=== PATIENT | female | born 1980 | race African-American/Black ===

== ENCOUNTER 2017-07-11 22:00 | Emergency (ER) | payer MEDICAID, OTHER ==
[~2017-07-11] VITALS: Ht 157.5 cm; Wt 58.1 kg
[2017-07-11 22:50] VITALS: BP 130/89
[2017-07-11] MEDS ORDERED: Ketorolac 30mg Inj IV ONE (23:15)
[2017-07-11 23:57] LABS: BASOPHILS % (AUTO) 0.3 % (0.0-2.0); EOSINOPHILS % (AUTO) 4.2 % (0.0-3.0); HEMATOCRIT 41.6 % (37.0-47.0); LYMPHOCYTES % (AUTO) 9.7 % (20.0-45.0); MEAN CORPUSCULAR VOLUME 92 FL (80-99); MONOCYTES % (AUTO) 5.4 % (1.0-10.0); NEUTROPHILS % (AUTO) 80.3 % (45.0-75.0); PLATELET COUNT 186 K/UL (150-450); RED CELL DISTRIBUTION WIDTH 16.3 % (11.6-14.8); WHITE BLOOD COUNT 4.9 K/UL (4.8-10.8)
[2017-07-12 00:04] LABS: ANION GAP 9 mmol/L (5-15); BLOOD UREA NITROGEN 7 mg/dL (7-18); CALCIUM 8.8 MG/DL (8.5-10.1); CARBON DIOXIDE 26 MMOL/L (21-32); CHLORIDE 101 MMOL/L (98-107); POTASSIUM 3.7 MMOL/L (3.5-5.1); SODIUM 135 MMOL/L (136-145)
[2017-07-12 00:05] LABS: APPEARANCE,URINE CLEAR; BILIRUBIN, URINE NEGATIVE (NEGATIVE); COLOR,URINE PALE YELLOW; GLUCOSE, URINE (UA) NEGATIVE (NEGATIVE); KETONES,URINE NEGATIVE (NEGATIVE); LEUKOCYTE ESTERASE ,URINE NEGATIVE (NEGATIVE); NITRITE,URINE NEGATIVE (NEGATIVE); PH,URINE 6.5 (4.5-8.0); PROTEIN,URINE NEGATIVE (NEGATIVE); UROBILINOGEN,URINE NORMAL MG/DL (0.0-1.0)
--- NOTE | 2017-07-12 00:15 | Emergency Room Report ---
History of Present Illness General Chief Complaint: General Complaint Source: Patient Present Illness [facility] This is a 36-year-old female with a history of anemia secondary to multiple fibroids. Patient presents with chief complaint of generalized weakness and fever. Also body pain from hypertension. Onset today. She thinks that is the cause of the antibiotic she is taking for "fibroid." The antibiotic was Flagyl. She also developed a prickly rash to her body. Slightly itching. Does have mild cough and congestion. Also feeling nauseous but no vomiting. Also with back pain. Pain is 9 out of 10. Allergies: Coded Allergies: ASPIRIN (Verified Allergy, Unknown, 07/11/17) IBUPROFEN (Verified Allergy, Unknown, 07/11/17) Patient History Past Medical History: see triage record, old chart reviewed Past Surgical History: other Pertinent Family History: other Social History: Denies: smoking Last Menstrual Period: june 25 "something" Now: No Immunizations: other Reviewed Nursing Documentation: PMH: Agreed, PSxH: Agreed Review of Systems Constitutional: Reports: chills, fever, malaise, weakness Eye: Denies: eye pain, blurred vision ENT: Denies: ear pain, nose congestion, throat swelling Respiratory: Reports: cough, Denies: shortness of breath Cardiovascular: Denies: chest pain, palpitations Gastrointestinal: Denies: abdominal pain, diarrhea, nausea, vomiting Musculoskeletal: Denies: back pain, joint pain Skin: Reports: rash Neurological: Denies: headache, numbness Endocrine: Denies: increased thirst, increased urine Hematologic/Lymphatic: Denies: easy bruising All Other Systems: negative except mentioned in HPI Physical Exam Vital Signs Date Time Temp Pulse Resp B/P (MAP) Pulse Ox O2 Delivery O2 Flow Rate FiO2 07/11/17 22:37 102.3 111 18 133/90 98 Room Air 102.4 vitals with fever Sp02 EP Interpretation: reviewed, normal General Appearance: well appearing, no apparent distress, alert Head: normocephalic, atraumatic Eyes: bilateral eye PERRL, bilateral eye EOMI ENT: hearing grossly normal, normal pharynx Neck: full range of motion, supple, no meningismus Respiratory: chest non-tender, lungs clear, normal breath sounds Cardiovascular #1: regular rate, rhythm, no murmur Gastrointestinal: normal bowel sounds, non tender, no mass, no organomegaly, no bruit, non-distended Musculoskeletal: back normal, gait/station normal, normal range of motion Neurologic: alert, oriented x3 Psychiatric: mood/affect normal Skin: warm/dry Medical Decision Making Diagnostic Impression: Primary Impression: Influenza-like illness ER Course Patient with influenza-like illness. No evidence of sepsis, pneumonia, dissection. Because of her itchiness and medical head and put her on Benadryl. I doubt this is an allergic reaction. she has no reaction to Toradol. Lab Results Impression labs unremarkable Last Vital Signs Date Time Temp Pulse Resp B/P (MAP) Pulse Ox O2 Delivery O2 Flow Rate FiO2 07/11/17 22:37 102.3 111 18 133/90 98 Room Air 102.4 Status: improved Disposition: HOME, SELF-CARE Condition: Stable Scripts Tramadol Hcl* (ULTRAM*) 50 Mg Tablet 50 MG ORAL Q6H Y for For Pain, #20 TAB 0 Refills Prov: JOSE SULTANA M.D. 07/12/17 Oseltamivir Phosphate (Tamiflu) 75 Mg Capsule 75 MG ORAL TWICE A DAY, #10 CAP Prov: JOSE SULTANA M.D. 07/12/17 Diphenhydramine Hcl* (BENADRYL*) 25 Mg Capsule 50 MG ORAL Q6H Y for Itching, #20 CAP Prov: JOSE SULTANA M.D. 07/12/17 Additional Instructions: Follow-up with your doctor in 3-5 days. Return if worse. JOSE SULTANA M.D. Jul 12, 2017 00:15
[2017-07-12] MEDS ORDERED: TAMIFLU75 MG ORAL (00:47)
[2017-07-12] MEDS ORDERED: TRAMADOL HCL50 MG ORAL (00:47)
[2017-07-12] MEDS ORDERED: BENADRYL25 MG ORAL (00:47)
[2017-07-12 01:00] VITALS: BP 128/87
[2017-07-12 01:10] VITALS: BP 128/87
== END 2017-07-12 01:10 | disposition home or self-care (01) ==
LOC: EMR 23:06
DX: J11.1 Influenza due to unidentified influenza virus with other respiratory manifestations (principal); Z88.6 Allergy status to analgesic agent
CPT/HCPCS: 36415; 80048; 80307; 81001; 81025; 85025; 96361; 96374; 99284; J1885